=== PATIENT | female | born 1945 | race Caucasian/White ===

== ENCOUNTER 2018-09-28 09:15 | Observation (INO) ==
[2018-09-28 12:23] LABS: HEMATOCRIT 20.8 % (37.0-47.0); MCHC 28.8 g/dL (33-37); MCV 86.7 FL (81-99); MPV 8.9 FL (7.4-10.4); RBC 2.4 XMIL (4.2-5.4); RDW 14.1 % (11.5-14.5); WBC 6.78 X1000 (4.8-10.8)
[2018-09-28 12:24] LABS: IRON SATURATION 4 %; TIBC 370 ug/dL; TOTAL IRON 13 ug/dL (49-151); UNBOUND IRON 357 ug/dL (112-346)
[2018-09-28 14:09] LABS: URINE SOURCE CLEAN CATCH
[2018-09-28 14:15] LABS: BILIRUBIN URINE NEGATIVE (NEGATIVE); BLOOD URINE NEGATIVE (NEGATIVE); COLOR YELLOW; GLUCOSE URINE NEGATIVE (NEGATIVE); KETONE URINE NEGATIVE (NEGATIVE); LEUKOCYTES URINE MODERATE (NEGATIVE); NITRITE URINE NEGATIVE (NEGATIVE); PROTEIN URINE NEGATIVE (NEGATIVE); SP GRAVITY URINE 1.016; TURBIDITY URINE CLEAR (CLEAR); UROBILINOGEN URINE NORMAL (NORMAL)
[2018-09-28] MEDS ORDERED: NS 500 ML ONE (14:16)
[2018-09-28 14:17] LABS: UR EPITHELIAL CELLS <10 /HPF (<10); URINE BACTERIA 4+ /HPF; URINE RBC <10 /HPF (<10); URINE WBC 20-40 /HPF (<10)
[2018-09-28] MEDS ORDERED: INJECTAFER 750 MG in NS 250 ML IV ONE (17:22)
--- NOTE | 2018-09-28 19:21 | HISTORY AND PHYSICAL ---
CHIEF COMPLAINT: Shortness of breath, tachycardia, leg cramps, craving for ice. HISTORY OF PRESENT ILLNESS: She is a 73-year-old white female, who was seen in my office yesterday with the above symptoms. She appears to be very pale. Subsequent hemoglobin 6, hematocrit 20. MCV is low. She denies having any GI symptoms. She is taking iron pills. She is taking also Aleve sometimes. Admitted to the hospital for observation for chronic loss of blood causing anemia. Hemodynamically stable. Admitted to the hospital basically for blood transfusion, iron, and do as an outpatient workup. PAST MEDICAL HISTORY: Type 2 diabetes, acid reflux disease, hyperlipidemia, sleep apnea, PAF, B12 deficiency, vitamin D deficiency. PAST SURGICAL HISTORY: Partial hysterectomy, [place] fundoplication. MEDICATIONS: Digoxin 125 mcg daily, glimepiride 2 mg once daily, Icar-C Plus 1 tablet daily, metformin 850 mg 3 times daily, Protonix 40 daily, Precose 50 p.o. b.i.d., verapamil 240 mg daily, Victoza 1.2 subcutaneous as needed, B12 and vitamin D replacement, Zetia 10 daily, Zoloft 50 daily. ALLERGIES: Not known. SOCIAL HISTORY: , 2 girls. Lives in [place]. She lost the a year ago from mesothelioma. No smoking. No alcohol. FAMILY HISTORY: Mom of diabetes complications at the age of 85. Father at 87 due to dementia. HEALTH MAINTENANCE: Pneumonia vaccine 2009, shingles 2017, tetanus 2009, mammography February 2018, DEXA scan January 2015, colonoscopy [address] Ardon. REVIEW OF SYSTEMS: HEENT: No headache. No vision problem. No earache. No sore throat. Neck: No goiter. No lymphadenopathy. No bruit. Cardiopulmonary: Palpitations, shortness of breath. No PND, no orthopnea. Gastrointestinal: No abdominal pain, bleeding per rectum. No melena. No weight loss. No swelling of legs, cramps in the legs upon walking, tightness, weakness. Neurological: No neurological symptoms or weakness. EXAMINATION: Vitals: Afebrile, pulse 72, blood pressure 130/60. HEENT: Pale. No jaundice. TMs are normal. Nose and throat within normal limits. Neck: Supple. No lymphadenopathy. No goiter. Chest: Bilateral air entry. Heart: Sounds are regular. No murmur. Abdomen: Belly is soft, nontender. Good bowel sounds. No masses palpable. Extremities: No peripheral edema or cyanosis. Neurological: No obvious neurological deficits. INVESTIGATIONS: CBC: White cell count 6.7, hematocrit 20.8, platelet 436,000. Iron is low, TIBC is high, ferritin is low. Folate is normal. Abnormal chest x-ray with right upper lobe opacity. ASSESSMENT AND PLAN: A 73-year-old white female admitted to the hospital for symptomatic anemia due to iron deficiency anemia, presumed to be chronic blood loss, and with a history of acid reflux disease. Plan is IV Protonix. Hemoccult stools. Transfusion of 2 units of packed RBCs. Check the hemoglobin and hematocrit and also Injectafer 1 dose. If she is stable, we will discharge in the morning. Repeat the CBC in the morning. We will work as an outpatient workup and reconcile home medications. cc: Ky Milan MD MTDD
[2018-09-28 19:50] LABS: HEMATOCRIT 24.6 % (37.0-47.0); HEMOGLOBIN 7.2 g/dL (12.0-16.0)
[2018-09-28] MEDS: SODIUM CHLORIDE 0.9% INJ SCH (23:28)
[2018-09-28] MEDS: PROTONIX IV SCH (23:28)
[2018-09-29 07:27] LABS: BASO# 0.02 X1000 (0.0-0.2); BASO% 0.3 % (0.0-0.8); EOS# 0.15 X1000 (0.0-0.7); HEMATOCRIT 28.1 % (37.0-47.0); HEMOGLOBIN 8.7 g/dL (12.0-16.0); IMM GRAN# 0.03 X1000 (0.0-0.04); IMM GRAN% 0.4 % (0.0-0.5); LYMPH# 1.53 X1000 (1.2-3.4); LYMPH% 20.2 % (20.5-51.1); MCH 26.4 PG (27-31); MCV 85.2 FL (81-99); MONO# 0.67 X1000 (0.11-0.59); MONO% 8.8 % (1.7-9.3); MPV 9.2 FL (7.4-10.4); NEUT# 5.19 X1000 (1.4-6.5); NEUT% 68.3 % (42.2-75.2); PLT 364 X1000 (130-400); RDW 14.5 % (11.5-14.5); WBC 7.59 X1000 (4.8-10.8)
[2018-09-29] MEDS ORDERED: LEVAQUIN 500 MG/D5W 500 MG/100 ML IVPB IV SCH (13:00)
--- NOTE | 2018-09-29 13:21 | PROGRESS NOTE ---
DATE: 09/29/2018 SUBJECTIVE: Ms. Thapa has some gram-negative muna isolated from the urine. Her hemoglobin has, after 2 units of transfusion gone up to 8.7. We will put her on IV Levaquin today and repeat CBC in the morning. -4 cc: MD Ky Serna MD
[2018-09-29] MEDS ORDERED: ZETIA PO SCH (13:30)
[2018-09-29] MEDS ORDERED: ISOPTIN SR PO SCH (13:30)
[2018-09-29] MEDS: LANOXIN PO SCH (13:52)
[2018-09-29] MEDS: ISOPTIN SR PO SCH (14:34)
[2018-09-29] MEDS: ZOLOFT PO SCH (14:35)
[2018-09-29] MEDS: GLUCOPHAGE PO SCH ×2 (14:35→19:05)
[2018-09-29] MEDS: UROGESIC-BLUE PO PRN ×2 (14:45→19:05)
[2018-09-29] MEDS: PROTONIX IV SCH (19:59)
[2018-09-29] MEDS: SODIUM CHLORIDE 0.9% INJ SCH (19:59)
[2018-09-30] MEDS: UROGESIC-BLUE PO PRN (06:33)
[2018-09-30] MEDS ORDERED: TYLENOL PO PRN (06:38)
[2018-09-30 07:57] LABS: BASO# 0.03 X1000 (0.0-0.2); BASO% 0.3 % (0.0-0.8); EOS# 0.27 X1000 (0.0-0.7); EOS% 2.6 % (0.0-10.0); HEMATOCRIT 29.4 % (37.0-47.0); HEMOGLOBIN 8.9 g/dL (12.0-16.0); LYMPH# 2.04 X1000 (1.2-3.4); LYMPH% 19.7 % (20.5-51.1); MCH 26.7 PG (27-31); MCHC 30.3 g/dL (33-37); MCV 88.3 FL (81-99); MONO# 0.98 X1000 (0.11-0.59); MONO% 9.5 % (1.7-9.3); MPV 9.6 FL (7.4-10.4); NEUT# 7.05 X1000 (1.4-6.5); NEUT% 67.9 % (42.2-75.2); PLT 348 X1000 (130-400); RBC 3.33 XMIL (4.2-5.4); RDW 14.9 % (11.5-14.5); WBC 10.37 X1000 (4.8-10.8)
[2018-09-30 08:25] VITALS: BP 143/58
[2018-09-30] MEDS: GLUCOPHAGE PO SCH (08:30)
[2018-09-30] MEDS: ISOPTIN SR PO SCH (08:30)
[2018-09-30] MEDS: ZOLOFT PO SCH (08:31)
[2018-09-30] MEDS: LANOXIN PO SCH (08:31)
--- NOTE | 2018-09-30 09:34 | PROGRESS NOTE ---
DATE: 09/30/2018 Ms. Thapa is feeling better. Vital signs are stable. Hemoglobin is 8.9 g. Urine culture grew E. coli, sensitive to Levaquin. We will discharge her with a prescription of Levaquin 500 mg daily for 7 days and ferrous sulfate 325 mg daily. She is to be followed by Dr. Milan. cc: MD Ky Serna MD
--- NOTE | 2018-10-01 13:14 | DISCHARGE SUMMARY ---
ADMISSION DATE: 09/28/2018 DISCHARGE DATE: 09/30/2018 DISCHARGING DIAGNOSIS: 1. Anemia due to chronic blood loss. SECONDARY DIAGNOSES: 1. Melanoma in situ right upper quadrant lesion. 2. Urinary tract infection due to ESBL negative E. Coli. 3. Type 2 diabetes. 4. Acid reflux disease. 5. Hyperlipidemia. 6. Sleep apnea. 7. Paroxysmal atrial fibrillation. 8. Vitamin B12 deficiency. 9. Vitamin D deficiency. PROCEDURE: Transfusion of 3 units of packed RBC, and 1 unit of 750 mg Injectafer. BRIEF HISTORY: Please see the H and P that was done on 09/28/2018. In brief, she is a 73-year- old white female admitted to the hospital with shortness of breath, palpitations, leg cramps, and craving for ice. The patient was profoundly anemic. She had heme-positive stool. HOSPITAL COURSE: Patient was given Protonix IV 3 units of packed RBC 750 mg Injectafer. She also was found to have E. coli for which she was given antibiotics. The patient was discharged stable by Dr. Chaudhari. LABORATORY: CBC: White cell count 10, hematocrit 29.4, and platelets 348,000. Stool occult blood is positive. Urine cultures for E. Coli. DISCHARGE INSTRUCTIONS: 1. Hold the aspirin, metformin 850 t.i.d., Lanoxin 125 mcg daily. Isoptin 240 daily, Zoloft 50 mg daily, Zetia 10 mg daily, vitamin D3 1 tab every week, Zoloft 50 mg daily, Levaquin 500 daily, and iron sulfate 325 daily. 2. Follow up in my office as an outpatient workup which includes EGD and colonoscopy. Also, follow up on melanoma in situ lesion.at [facility]. We will discuss. cc: Ky Milan MD [facility]
== END 2018-09-30 11:35 | disposition home or self-care (01) ==
LOC: INTOOBSV 09:15 → DIRADM 09:15 → 3N 10:49
PROVIDERS: ADMIT Internal Medicine; ATTEND Internal Medicine
CPT/HCPCS: 36430; 81001; 82270; 82607; 82728; 82746; 83540; 83550; 85014; 85018; 85025; 85027; 86850; 86900; 86901; 86920; 87077; 87088; 87186; A9270; C9113; G0378; G0379; J1439; J1956; J7040; J7050; P9016; S0164